=== PATIENT | female | born 1970 | race American Indian/Alaskan Native ===

== ENCOUNTER 2018-08-23 09:30 | Outpatient (CLI) | payer OTHER | END 2018-08-23 09:31 | disposition home or self-care (01) | LOC: LAB 09:30 ==

== ENCOUNTER 2018-08-29 12:50 | Outpatient (CLI) | payer OTHER | END 2018-08-29 12:51 | disposition home or self-care (01) | LOC: RAD 12:50 ==

== ENCOUNTER 2018-09-12 10:18 | Outpatient (CLI) | payer OTHER | END 2018-09-12 10:19 | disposition home or self-care (01) | LOC: LAB 10:18 ==

== ENCOUNTER 2018-09-17 12:45 | Outpatient (CLI) | payer OTHER | END 2018-09-17 12:46 | disposition home or self-care (01) | LOC: RAD 12:45 ==

== ENCOUNTER 2018-11-08 10:50 | Outpatient (CLI) | payer OTHER | END 2018-11-08 10:51 | disposition home or self-care (01) | LOC: LAB 10:50 ==